=== PATIENT | male | born 1975 | race Caucasian/White ===

== ENCOUNTER 2018-02-12 20:26 | Inpatient (IN) | payer OTHER, SELFPAY ==
[2018-02-12 20:28] VITALS: BP 124/68; PULSE 96; RESP 16; TEMP 37.9; O2SAT 98; BMI 24.4
[2018-02-12 22:02] VITALS: BP 97/62; PULSE 93; RESP 18; O2SAT 94
[2018-02-12 22:06] LABS: Absolute Neutrophil Count 6.6 X10^3/uL (2.0-7.7); Basophil# 0.02 X10^3/uL; Basophil% 0.2 % (0-1); Eosinophil# 0.05 X10^3/uL; Eosinophils% 0.5 % (0-5); Hematocrit 40.5 % (40-54); Hemoglobin 14.3 g/dl (13.0-16.5); Lymphocyte % 16.3 % (19-41); Mean Corp Hgb Conc 35.3 g/gl (32-36); Mean Corpuscular Volume 85.1 fL (80-94); Mean Platelet Vol. 8.6 fl (6.2-12.0); Monocyte# 1.06 X10^3/uL; Monocyte% 11.5 % (0-10); Neutrophil # 6.57 X10^3/uL (2.7-7.7); Neutrophil % 71.5 % (47-70); Platelet Count 187 K/mm3 (150-450); RBC Distribution Width CV 11.9 % (11.6-14.6); RBC Distribution Width SD 36.9 fl (35.1-43.9); Red Blood Count 4.76 M/mm3 (4.6-6.2); White Blood Count 9.2 K/mm3 (4.4-11.0)
[2018-02-12 22:11] LABS: POSITIVE COUNT NO; POSITIVE DIFFERENTIAL NO; POSITIVE MORPHOLOGY NO
[2018-02-12] MEDS: Acetaminophen 500 MG Tablet 1000 MG PO (22:11)
[2018-02-12 22:12] VITALS: TEMP 37.4
[2018-02-12] MEDS: 0.9% Normal Saline 1,000 ML 999 ML IV ×2 (22:12→22:13)
[2018-02-12 22:17] LABS: Erythrocyte Sedimentation Rate 46 mm/hr (0-15)
[2018-02-12 22:19] LABS: International Normalized Ratio 1.1; Prothrombin Time (Protime)PT. 13.9 SECONDS (11.7-14.9)
[2018-02-12 22:20] LABS: Partial Thromboplast Time 34.2 Seconds (24.1-36.2)
[2018-02-12 22:25] LABS: ALB/GLOB Ratio 0.8 RATIO (0.9-2.4); AST(SGOT) 12 U/L (15-37); Alanine Aminotransfer ALT/SGPT 21 U/L (16-61); Albumin, Serum 3.5 g/dL (3.2-5.0); Alkaline Phosphatase 117 U/L (45-117); Anion Gap 7 (5-15); BUN 10 mg/dL (7-18); BUN/Creat Ratio 12.5 RATIO (10-20); CPK Total, Creatine Kinase 104 U/L (39-308); Calcium,Total 8.7 mg/dL (8.5-10.1); Chloride 103 mmol/L (98-107); EST Glomerular Filtration Rate 112 mL/min (>60); Est Glom Filt Rate - Afr Amer 136 mL/min (>60); Estimated Creatinine Clearance 121.52 ml/min; Globulin 4.3 g/dL (2.2-4.2); Glucose 106 mg/dL (74-106); Potassium 3.8 mmol/L (3.5-5.1); Protein, Total 7.8 g/dL (6.4-8.2); Sodium Level 137 mmol/L (136-145)
[2018-02-12 22:28] LABS: Lactic Acid 0.8 mmol/L (0.4-2.0)
[2018-02-12 22:59] LABS: Bacteria 0 SEEN /hpf (None Seen); Mucous, Urine 0 SEEN /hpf (<or=2+); Squamous Epithelial Cells - UA 0 SEEN /hpf (0-5)
[2018-02-12 23:00] VITALS: BP 111/74; PULSE 88; RESP 15; O2SAT 98
[2018-02-12 23:01] LABS: Color, Urine Yellow (Yellow); Glucose, Dipstick Normal (Normal); Ketone-Dipstick Negative (Negative); Leukocyte Esterase-Dipstick Negative /ul (Negative); Nitrite-Dipstick Negative (Negative); Occult Blood-Urine Negative /ul (Negative); Protein-Dipstick 30 mg/dl (Negative); Urine Bilirubin Dipstick Negative (Negative); Urine Clarity Clear (Clear); Urine Urobilinogen 1 mg/dl (Normal)
[2018-02-12 23:13] LABS: Hyaline Cast 0-5 SEEN /lpf (0-5); Red Blood Cells-Urine 0-5 SEEN /hpf (0-5); White Blood Cells 0-5 SEEN /hpf (0-5)
--- NOTE | 2018-02-12 23:36 | ED.VISSUMM ---
- ER Visit Summary Date of Service: 02/12/18 Chief Complaint: Leg weakness and fever History of Present Illness: The patient is a 42 M presenting for evaluation secondary to leg weakness and fever. Patient reports that over the course last 3 days he has had progressively worsening weakness. Patient reports that it started with a pain under the soles of his feet bilaterally. He reports that the pain seemed to ascend through the lateral portion of his calves, and then went up into the lateral and medial portions of his thighs into his lower back. Patient reports that he has weakness of his legs bilaterally and feels as if he is having some trouble ambulating. Patient reports that he has developed some low-grade fevers associated with this, most recently 101. He also states that he now is having some weakness in his hands and some difficulty with turning door handles. Patient states that about 5 or 6 weeks ago he had a flulike illness the completely resolved. He has not had any symptoms since then. Patient has a distant prior history of a cervical spine surgery, but no recent injections surgeries or history of IV drug use. Patient was seen in urgent care and was thought to potentially have [place]? so he was sent to the emergency department. Physical Examination: Vital signs notable blood pressure 97/62 temperature 99.3. Well-nourished male no acute distress. Head normal cephalic atraumatic, neck nontender full range of motion. Heart regular rate and rhythm no murmurs lungs sounds clear to auscultation bilaterally. Abdomen soft nontender nondistended. Back was nontender. Extremities were nontender to palpation, no evidence of peripheral edema with normal peripheral pulses. Skin was normal color with no rash. Neurologic exam of the patient to nd shows 5 out of 5 strength at the shoulder elbow wrist and hand with 1+ brachioradialis biceps and triceps reflexes bilaterally. Lower extremity neuro exam shows 4 out of 5 strength hip flexion on the right with 5 out of 5 strength throughout the rest of the lower extremities. There are 3+ bilateral patellar reflexes with 2+ Achilles downgoing Babinski's and negative clonus. Test Results: CBC shows a neutrophilic predominance of 71.5. Chemistries negative. Liver panel shows elevated total bilirubin at 2.1. Urinalysis is negative, CPK is normal at 108, CRP elevated at 63 ESR mildly elevated at 40. Emergency Department Course and Treatment: Patient presented for evaluation secondary to weakness and fever. Patient's description of his ascending weakness is concerning for the possibility of the operated but his physical exam is clearly not consistent with this given the fact that he is hyperreflexic rather than hyporeflexic. She had lab work that was essentially unremarkable. He was given 2 L normal saline had improvement of his blood pressure. I discussed this case with neurology, who does not feel that a emergent lumbar puncture is necessary. Given the patient's fever and ascending weakness I did start patient on broad-spectrum antibiotics. Patient will be admitted under the hospitalist for further workup. Disposition: Admission Impression: 1. Bilateral lower extremity weakness 2. Fever This note was generated with [employer] dictation software. It may contain incorrect words, spelling, and punctuation that were not noted in review of the chart prior to signing ED Disposition - Plan for ED Patient: Chief Complaint: Lower Extremity Injury Referrals: Leonidas Mabry DO [Primary Care Provider] -
[2018-02-12 23:39] VITALS: BP 113/68; PULSE 82; RESP 24; TEMP 37.4; O2SAT 94
[2018-02-12] MEDS: Piperacil/Tazobactam 3.375 GM/50 ML ML IV (23:45)
[2018-02-13] VITALS (11 sets, daily range): BP systolic 104–136; BP diastolic 62–72; PULSE 64–92; RESP 12–21; TEMP 36.9–37.2; O2SAT 94–99; BMI 24.2; BMI 24.3
--- NOTE | 2018-02-13 00:14 | HP.PCM_ITS ---
History of Present Illness Date of Admission: 02/13/18 Chief Complaint: Bilateral leg pain/weakness, subjective fever. The patient is a 42 year old M with no significant past medical history presented to the emergency room because of bilateral leg pain and weakness. His symptoms started 5 days ago with bilateral lower extremity pain, started on both feet, start to go up to his legs and thighs up to his hips, dull aching constant pain, 7 out of 10 in severity, associated with difficulty ambulating and weakness and without aggravating or relieving factors. He mentioned that the pain in the weakness is slightly more on the right lower extremity. He reports subjective fever at home today. Her symptom has been progressive and since yesterday, he has been having difficulties ambulating and he decided to go to urgent care who sent him to ER for evaluation. He described some different feeling and sensation on both legs and looked like his legs are very heavy and tingly. He denied fall on mechanical trauma. He complains of headache and when he bends his neck forward, some kind of mild pain goes along his back down to his anal cleft. He history of bad influenza around 5 weeks ago. He denied chest pain or shortness of breath. Denied cough or sputum production. His mentioned that his brother had a serious illness few months ago and he had spinal tap when he was in the hospital. She does not have any more significant details about this story. In the emergency department , he had low-grade fever, other vital signs were stable. His routine blood work was unremarkable. His LFT revealed bilirubin of 2.1, normal liver transaminases and alkaline phosphatase. His lactic acid was normal. ESR and C- reactive protein was elevated. Urine analysis showed no evidence of acute cystitis. He is being admitted for bilateral leg weakness/pain and acute febrile illness without evidence of infection for evaluation. Past Medical History Allergies No Known Allergies Allergy (Verified 02/12/18 20:28) Home Medications: Ambulatory Orders Medication Instructions Recorded NK [NK] 02/12/18 Surgical History: - - Neck surgery. Psychiatric History: No pertinent psych hx Lives: Spouse/ Significant Other Smoking Status: Never smoker Alcohol: None Drugs: None - *Family History Maternal History Items: No pertinent history Paternal History Items: No pertinent history Review of Systems Constitutional: Reports: Anorexia, Fever, Weakness. Denies: Chills Eyes: Denies: Blurred vision, Double vision, Drainage, Redness HEENT: Denies: Difficulty Hearing, Ear Pain, Eye Pain, Nasal Congestion, Sore Throat Cardiovascular: Denies: Chest Pain, Chest Pressure, Chest Tightness, Heaviness, Palpitations, Syncope Respiratory: Denies: Cough, Pleuritic Pain, Shortness of Breath, Sputum production, Wheezing Gastrointestinal: Denies: Abdominal Pain, Constipation, Diarrhea, Nausea, Vomiting Genitourinary: Denies: Dysuria, Frequency, Hematuria Musculoskeletal: Reports: Leg Pain, Muscle pain. Denies: Arm Pain, Joint Pain Skin: Denies: Dryness, Rash Neurological: Reports: Headaches, Tingling. Denies: Balance problems, Double vision, Change in Speech, Slurred speech, Confusion, Incoordination Psychiatric: Denies: Anxiety, Depression Endocrine: Denies: Change in Body Habitus, Polydipsia VTE Information - Inpt Only VTE Present on Admission: No VTE Mechan Device Prophylaxis: None VTE Pharm Prophylaxis ordered?: Yes - Physical Exam General: Alert, Oriented x3, Cooperative HEENT: Atraumatic, PERRLA, EOMI, Normocephalic, - - No neck stiffness. Oral: Moist Mucosa, No Gingival or Mucosal Lesions/ Ulcerations Neck: Supple, No JVD, Negative Carotid Bruits, Trachea Midline, Thyroid Normal Size and Texture Lungs: Clear to auscultation, No rhonchi, No wheeze, No rales, Diminished Cardiovascular: Regular rate, Regular Rhythm, Normal S1, Normal S2, PMI Normal Abdomen: Bowel Sounds Present, Soft, Non Tender, Non-Distended, No Hepato- splenomegaly Extremities: No clubbing, No cyanosis, No edema Skin: No rashes, No breakdown Lymphatic: No Cervical, Supraclavicular, or Inguinal Adenopathy Neurological: Cranial nerves II-XII grossly intact, Motor Exam 5/5 strength throughout Psych/Mental Status: Normal Affect, Appropriate, Alert and oriented to time, place, person, mood and affect Vital Signs Temp Pulse Resp BP Pulse Ox 99.4 F H 74 18 114/69 94 02/12/18 23:39 02/13/18 00:07 02/13/18 00:07 02/13/18 00:07 02/13/18 00:07 Oxygen Delivery Method Room Air Weight: 165 lb 9.074 oz Body Mass Index (BMI) 24.4 Laboratory Tests Past 24 Hrs 02/12/18 02/12/18 02/12/18 21:45 21:45 21:45 WBC 9.2 RBC 4.76 Hgb 14.3 Hct 40.5 MCV 85.1 MCH 30.0 MCHC 35.3 RDW 11.9 RDW Differential 36.9 Plt Count 187 MPV 8.6 Immature Gran % (Auto) 0.000 Neut % (Auto) 71.5 H Lymph % (Auto) 16.3 L [place] % (Auto) 11.5 H Eos % (Auto) 0.5 Baso % (Auto) 0.2 Absolute Neuts (auto) 6.6 Absolute Lymphs (auto) 1.50 Total Counted Not Reportable ESR 46 H PT 13.9 INR 1.1 APTT 34.2 Sodium 137 Potassium 3.8 Chloride 103 Carbon Dioxide 27.0 Anion Gap 7 BUN 10 Creatinine 0.80 Estim Creat Clear Calc 121.52 Est GFR (MDRD) Af Amer 136 Est GFR (MDRD) Non-Af 112 BUN/Creatinine Ratio 12.5 Glucose 106 Lactic Acid Calcium 8.7 Total Bilirubin 2.10 H AST 12 L ALT 21 Alkaline Phosphatase 117 Total Creatine Kinase 104 C-React Prot Ext Range 63.50 H Total Protein 7.8 Albumin 3.5 Globulin 4.3 H Albumin/Globulin Ratio 0.8 L Urine Color Urine Clarity Urine pH Ur Specific [place] Urine Protein Urine Glucose (UA) Urine Ketones Urine Occult Blood Urine Nitrite Urine Bilirubin Urine Urobilinogen Ur Leukocyte Esterase Urine RBC Urine WBC Ur Squamous Epith Cells Urine Bacteria Hyaline Casts Urine Mucus 02/12/18 02/12/18 21:45 22:55 WBC RBC Hgb Hct MCV MCH MCHC RDW RDW Differential Plt Count MPV Immature Gran % (Auto) Neut % (Auto) Lymph % (Auto) [place] % (Auto) Eos % (Auto) Baso % (Auto) Absolute Neuts (auto) Absolute Lymphs (auto) Total Counted ESR PT INR APTT Sodium Potassium Chloride Carbon Dioxide Anion Gap BUN Creatinine Estim Creat Clear Calc Est GFR (MDRD) Af Amer Est GFR (MDRD) Non-Af BUN/Creatinine Ratio Glucose Lactic Acid 0.8 Calcium Total Bilirubin AST ALT Alkaline Phosphatase Total Creatine Kinase C-React Prot Ext Range Total Protein Albumin Globulin Albumin/Globulin Ratio Urine Color Yellow Urine Clarity Clear Urine pH 7.0 Ur Specific [place] 1.010 Urine Protein 30 H Urine Glucose (UA) Normal Urine Ketones Negative Urine Occult Blood Negative Urine Nitrite Negative Urine Bilirubin Negative Urine Urobilinogen 1 H Ur Leukocyte Esterase Negative Urine RBC 0-5 SEEN Urine WBC 0-5 SEEN Ur Squamous Epith Cells 0 SEEN Urine Bacteria 0 SEEN Hyaline Casts 0-5 SEEN Urine Mucus 0 SEEN Assessment/Plan This is a 42 years old male patient presented to the emergency room because of 5 days history of bilateral leg pain and weakness as well as subjective fever and he is being admitted for evaluation. #1 bilateral leg pain/weakness/fever: In context of history of influenza 5 weeks ago. Differential diagnoses include [place]? syndrome and transverse myelitis. At this time, his vital signs are stable, respiratory status is stable. Routine blood work is unremarkable. CRP and ESR was elevated. Urinalysis is unremarkable. Plan: Admit to PCU, cardiac monitoring, neurologic assessment every 8 hours ?3, IV fluids, empiric IV antibiotics, lumbar puncture, Tylenol as needed, IV morphine as needed for pain, IV antiemetics, neurology consult, repeat CBC and CMP tomorrow morning, PT OT evaluation and treatment. #2 DVT prophylaxis: Subcu Lovenox. This note was generated with [employer] dictation software. It may contain incorrect words, spelling, and punctuation that were not noted in checking the note before signing. Code Visit Inpatient E&M: 86506 Init Hosp L3
--- NOTE | 2018-02-13 00:34 | NURSING ---
Called ED charge nurse eugenia Desai to send patient to the floor.
--- NOTE | 2018-02-13 01:05 | RAD_ITS ---
STUDY: X-RAY CHEST REASON FOR EXAM: Male, 42 years old. Fever TECHNIQUE: Single AP portable view of the chest. COMPARISON: None. FINDINGS: The lungs are clear and expanded. There is no demonstrated pleural abnormality. Normal size heart. Normal mediastinum and hao. Normal visualized pulmonary arteries. Normal visualized aortic arch and descending thoracic aorta. Normal visualized thoracic spine. Normal visualized ribs, clavicles, and shoulders. There is no demonstrated abnormality of the visualized soft tissue structures of the upper abdomen. RAD/Chest 1 View (Portable) IMPRESSION: Normal x-ray examination of the chest. Electronically Signed: Mel Pulido MD at 4:55 EDT Tel , Service support ,
--- NOTE | 2018-02-13 02:07 | PCM.RX.CS ---
Consult Pharmacy has been consulted to manage selected antiobiotic: Vancomycin Type of Consult: New start Suspected Infection: Other Prior Doses of Antibiotics Received/Current Regimen: Medications Vancomycin HCl 1,250 mg/ (Sodium Chloride) 275 mls @ 183.333 mls/hr IV Q12H JIE Vancomycin HCl 1,250 mg/ (Sodium Chloride) 275 mls @ 183.333 mls/hr IV X1 ONE Stop: 02/13/18 03:29 Last Admin: 02/13/18 01:58 Dose: 183.333 mls/hr Labs: Sodium 137 mmol/L (136-145) 02/12/18 21:45 Potassium 3.8 mmol/L (3.5-5.1) 02/12/18 21:45 Chloride 103 mmol/L (98-107) 02/12/18 21:45 Carbon Dioxide 27.0 mmol/L (21.0-32.0) 02/12/18 21:45 Anion Gap 7 (5-15) 02/12/18 21:45 BUN 10 mg/dL (7-18) 02/12/18 21:45 Creatinine 0.80 mg/dL (0.70-1.30) 02/12/18 21:45 Est GFR (MDRD) Af Amer 136 mL/min (>60) 02/12/18 21:45 Est GFR (MDRD) Non-Af 112 mL/min (>60) 02/12/18 21:45 BUN/Creatinine Ratio 12.5 RATIO (10-20) 02/12/18 21:45 Glucose 106 mg/dL (74-106) 02/12/18 21:45 Weight used for dosin.1 kg Estimated Creatinine Clearance: 121 Goal Trough: 10-15 mcg/mL Pharmacy Plan for Drug Dosing: Pharmacy Service will continue to monitor and adjust dosing as required. Follow-Up Labs: Trough Vancomycin Labs to be done on [date and time ordered]: 02/14/18 @1330 (before 4th dose)
[2018-02-13] MEDS: Piperacil/Tazobactam 3.375 GM/50 ML ML IV (05:30)
[2018-02-13] MEDS: Enoxaparin 40 MG/0.4 ML Syringe SC (05:34)
[2018-02-13 06:06] LABS: Absolute Lymphocyte Count 1.24 X10^3/ul (0.83-4.51); Absolute Neutrophil Count 3.9 X10^3/uL (2.0-7.7); Basophil# 0.01 X10^3/uL; Basophil% 0.2 % (0-1); Eosinophil# 0.05 X10^3/uL; Eosinophils% 0.8 % (0-5); Hemoglobin 12.4 g/dl (13.0-16.5); Lymphocyte # 1.24 X10^3/ul (4.0); Lymphocyte % 20.7 % (19-41); Mean Corp Hgb Conc 33.5 g/gl (32-36); Mean Corpuscular Hgb 29.1 pg (27.0-32.0); Mean Corpuscular Volume 86.9 fL (80-94); Mean Platelet Vol. 8.9 fl (6.2-12.0); Monocyte# 0.77 X10^3/uL; Monocyte% 12.8 % (0-10); Neutrophil # 3.92 X10^3/uL (2.7-7.7); Neutrophil % 65.3 % (47-70); Platelet Count 157 K/mm3 (150-450); RBC Distribution Width SD 38.2 fl (35.1-43.9); Red Blood Count 4.26 M/mm3 (4.6-6.2)
[2018-02-13 06:12] LABS: POSITIVE COUNT NO; POSITIVE DIFFERENTIAL NO; POSITIVE MORPHOLOGY NO
[2018-02-13 06:26] LABS: ALB/GLOB Ratio 0.8 RATIO (0.9-2.4); AST(SGOT) 9 U/L (15-37); Alanine Aminotransfer ALT/SGPT 16 U/L (16-61); Albumin, Serum 2.8 g/dL (3.2-5.0); Alkaline Phosphatase 94 U/L (45-117); Anion Gap 5 (5-15); BUN 8 mg/dL (7-18); BUN/Creat Ratio 10.6 RATIO (10-20); Calcium,Total 7.9 mg/dL (8.5-10.1); Chloride 109 mmol/L (98-107); Creatinine, Serum 0.76 mg/dL (0.70-1.30); EST Glomerular Filtration Rate 121 mL/min (>60); Est Glom Filt Rate - Afr Amer 146 mL/min (>60); Estimated Creatinine Clearance 127.91 ml/min; Globulin 3.5 g/dL (2.2-4.2); Glucose 117 mg/dL (74-106); Potassium 3.9 mmol/L (3.5-5.1); Protein, Total 6.3 g/dL (6.4-8.2); Sodium Level 143 mmol/L (136-145)
--- NOTE | 2018-02-13 11:20 | CON.PCM_ITS ---
Reason for Consult Date of Consultation: 02/13/18 Reason for Consultation: leg weakness and pain History of Present Illness: The patient is a 42 year old right handed male, healthy otherwise, 6 days ago noted onset of lower extremity weakness and pain, reports improved today. history of cervical disc, but no new neck or back pain.admitted last night, low grade fevers noted, normal cpk, elevated crp and esr. notes tick bites in the past but none this year. per admit h and p:The patient is a 42 year old M with no significant past medical history presented to the emergency room because of bilateral leg pain and weakness. His symptoms started 5 days ago with bilateral lower extremity pain, started on both feet, start to go up to his legs and thighs up to his hips , dull aching constant pain, 7 out of 10 in severity, associated with difficulty ambulating and weakness and without aggravating or relieving factors. He mentioned that the pain in the weakness is slightly more on the right lower extremity. He reports subjective fever at home today. Her symptom has been progressive and since yesterday, he has been having difficulties ambulating and he decided to go to urgent care who sent him to ER for evaluation. He described some different feeling and sensation on both legs and looked like his legs are very heavy and tingly. He denied fall on mechanical trauma. He complains of headache and when he bends his neck forward, some kind of mild pain goes along his back down to his anal cleft. He history of bad influenza around 5 weeks ago. He denied chest pain or shortness of breath. Denied cough or sputum production. His mentioned that his brother had a serious illness few months ago and he had spinal tap when he was in the hospital. She does not have any more significant details about this story. In the emergency department, he had low-grade fever, other vital signs were stable. His routine blood work was unremarkable. His LFT revealed bilirubin of 2.1, normal liver transaminases and alkaline phosphatase. His lactic acid was normal. ESR and C-reactive protein was elevated. Urine analysis showed no evidence of acute cystitis. He is being admitted for bilateral leg weakness/ pain and acute febrile illness without evidence of infection for evaluation. Past Medical History Allergies No Known Allergies Allergy (Verified 02/12/18 20:28) Home Medications: Ambulatory Orders Medication Instructions Recorded NK [NK] 02/12/18 Surgical History: - - Neck surgery. Psychiatric History: No pertinent psych hx Lives: Spouse/ Significant Other Smoking Status: Former smoker Tobacco Use: Cigarettes Alcohol: None Drugs: None - *Family History Maternal History Items: No pertinent history Paternal History Items: No pertinent history Review of Systems Constitutional: Denies: Chills, Fever, Weight Change HEENT: Denies: Head Aches, Sinus Congestion, Sinus Drainage Cardiovascular: Denies: Chest Pain, Palpitations Respiratory: Denies: Cough, Shortness of breath at rest, Sputum production Gastrointestinal: Denies: Abdominal Pain, Nausea, Vomiting Genitourinary: Denies: Dysuria Musculoskeletal: Denies: Joint Pain, Joint Tenderness Skin: Denies: Rash, Wounds Neurological: Denies: Numbness, Tingling, Focal weakness Psychiatric: Denies: Anxiety, Depression, Homicidal Ideations, Suicidal Ideations Hematologic/ Lymphatic: Denies: Easy Bruising, Easy Bleeding - Physical Exam General: Alert, Oriented x3, Cooperative, No apparent distress HEENT: PERRLA, EOMI Musculoskeletal: - - right knee pain on palpation, no swelling or warmth or redness Neurological: Cranial nerves II-XII grossly intact, Deep Tendon Reflexes 2+/4 and Symmetrical, Neuro grossly intact, Motor Exam 5/5 strength throughout Psych/Mental Status: Normal Affect Vital Signs Temp Pulse Resp BP Pulse Ox 37.2 C 88 12 120/64 96 02/13/18 10:00 02/13/18 10:00 02/13/18 10:00 02/13/18 10:00 02/13/18 10:00 Oxygen Delivery Method Room Air Weight: 74.5 kg Body Mass Index (BMI) 24.2 Intake and Output for Last 24 Hours 02/11/18 02/12/18 02/13/18 23:59 23:59 23:59 Intake Total 938 / 938 Output Total 325 / 325 Balance 613 / 613 Laboratory Tests Past 24 Hrs 02/13/18 02/13/18 05:35 05:35 WBC 6.0 RBC 4.26 L Hgb 12.4 L Hct 37.0 L MCV 86.9 MCH 29.1 MCHC 33.5 RDW 12.0 RDW Differential 38.2 Plt Count 157 MPV 8.9 Immature Gran % (Auto) 0.200 Neut % (Auto) 65.3 Lymph % (Auto) 20.7 [place] % (Auto) 12.8 H Eos % (Auto) 0.8 Baso % (Auto) 0.2 Absolute Neuts (auto) 3.9 Absolute Lymphs (auto) 1.24 Total Counted Not Reportable Sodium 143 Potassium 3.9 Chloride 109 H Carbon Dioxide 29.0 Anion Gap 5 BUN 8 Creatinine 0.76 Estim Creat Clear Calc 127.91 Est GFR (MDRD) Af Amer 146 Est GFR (MDRD) Non-Af 121 BUN/Creatinine Ratio 10.6 Glucose 117 H Calcium 7.9 L Total Bilirubin 2.30 H AST 9 L ALT 16 Alkaline Phosphatase 94 Total Protein 6.3 L Albumin 2.8 L Globulin 3.5 Albumin/Globulin Ratio 0.8 L Current Home Med List Medication Instructions Recorded Confirmed Type NK [NK] 02/12/18 02/12/18 History Current Medications Generic Name Dose Route Start Last Admin Trade Name Freq PRN Reason Stop Dose Admin Acetaminophen 650 mg 02/13/18 01:05 Tylenol PO Q6H PRN PRN Fever, headache, pain Enoxaparin Sodium 40 mg 02/13/18 06:00 02/13/18 05:34 Lovenox SC 40 mg DAILY@0600 [facility] Administration Magnesium Hydroxide 30 ml 02/13/18 01:05 Milk Of Magnesia PO DAILY PRN PRN Constipation Morphine Sulfate 1 mg 02/13/18 01:05 IV Q4H PRN PRN SEVERE PAIN (6-10/10) Nutritional Formula (Lactose Free) 120 ml 02/13/18 10:00 02/13/18 08:30 Ensure Enlive PO Not Given 4X/DAY [facility] Ondansetron HCl 4 mg 02/13/18 01:05 Zofran IV Q6H PRN PRN NAUSEA/VOMITING Sodium Chloride 5 - 30 ml 02/13/18 01:28 IV UD PRN SALINE FLUSH Laboratory Results - last 24 hr 02/12/18 02/12/18 02/12/18 21:45 21:45 21:45 WBC 9.2 RBC 4.76 Hgb 14.3 Hct 40.5 MCV 85.1 MCH 30.0 MCHC 35.3 RDW 11.9 RDW Differential 36.9 Plt Count 187 MPV 8.6 Immature Gran % (Auto) 0.000 Neut % (Auto) 71.5 H Lymph % (Auto) 16.3 L [place] % (Auto) 11.5 H Eos % (Auto) 0.5 Baso % (Auto) 0.2 Absolute Neuts (auto) 6.6 Absolute Lymphs (auto) 1.50 Total Counted Not Reportable ESR 46 H PT 13.9 INR 1.1 APTT 34.2 Sodium 137 Potassium 3.8 Chloride 103 Carbon Dioxide 27.0 Anion Gap 7 BUN 10 Creatinine 0.80 Estim Creat Clear Calc 121.52 Est GFR (MDRD) Af Amer 136 Est GFR (MDRD) Non-Af 112 BUN/Creatinine Ratio 12.5 Glucose 106 Lactic Acid Calcium 8.7 Total Bilirubin 2.10 H AST 12 L ALT 21 Alkaline Phosphatase 117 Total Creatine Kinase 104 C-React Prot Ext Range 63.50 H Total Protein 7.8 Albumin 3.5 Globulin 4.3 H Albumin/Globulin Ratio 0.8 L Urine Color Urine Clarity Urine pH Ur Specific [place] Urine Protein Urine Glucose (UA) Urine Ketones Urine Occult Blood Urine Nitrite Urine Bilirubin Urine Urobilinogen Ur Leukocyte Esterase Urine RBC Urine WBC Ur Squamous Epith Cells Urine Bacteria Hyaline Casts Urine Mucus 02/12/18 02/12/18 02/13/18 21:45 22:55 05:35 WBC 6.0 RBC 4.26 L Hgb 12.4 L Hct 37.0 L MCV 86.9 MCH 29.1 MCHC 33.5 RDW 12.0 RDW Differential 38.2 Plt Count 157 MPV 8.9 Immature Gran % (Auto) 0.200 Neut % (Auto) 65.3 Lymph % (Auto) 20.7 [place] % (Auto) 12.8 H Eos % (Auto) 0.8 Baso % (Auto) 0.2 Absolute Neuts (auto) 3.9 Absolute Lymphs (auto) 1.24 Total Counted Not Reportable ESR PT INR APTT Sodium Potassium Chloride Carbon Dioxide Anion Gap BUN Creatinine Estim Creat Clear Calc Est GFR (MDRD) Af Amer Est GFR (MDRD) Non-Af BUN/Creatinine Ratio Glucose Lactic Acid 0.8 Calcium Total Bilirubin AST ALT Alkaline Phosphatase Total Creatine Kinase C-React Prot Ext Range Total Protein Albumin Globulin Albumin/Globulin Ratio Urine Color Yellow Urine Clarity Clear Urine pH 7.0 Ur Specific [place] 1.010 Urine Protein 30 H Urine Glucose (UA) Normal Urine Ketones Negative Urine Occult Blood Negative Urine Nitrite Negative Urine Bilirubin Negative Urine Urobilinogen 1 H Ur Leukocyte Esterase Negative Urine RBC 0-5 SEEN Urine WBC 0-5 SEEN Ur Squamous Epith Cells 0 SEEN Urine Bacteria 0 SEEN Hyaline Casts 0-5 SEEN Urine Mucus 0 SEEN 02/13/18 05:35 WBC RBC Hgb Hct MCV MCH MCHC RDW RDW Differential Plt Count MPV Immature Gran % (Auto) Neut % (Auto) Lymph % (Auto) [place] % (Auto) Eos % (Auto) Baso % (Auto) Absolute Neuts (auto) Absolute Lymphs (auto) Total Counted ESR PT INR APTT Sodium 143 Potassium 3.9 Chloride 109 H Carbon Dioxide 29.0 Anion Gap 5 BUN 8 Creatinine 0.76 Estim Creat Clear Calc 127.91 Est GFR (MDRD) Af Amer 146 Est GFR (MDRD) Non-Af 121 BUN/Creatinine Ratio 10.6 Glucose 117 H Lactic Acid Calcium 7.9 L Total Bilirubin 2.30 H AST 9 L ALT 16 Alkaline Phosphatase 94 Total Creatine Kinase C-React Prot Ext Range Total Protein 6.3 L Albumin 2.8 L Globulin 3.5 Albumin/Globulin Ratio 0.8 L Urine Color Urine Clarity Urine pH Ur Specific [place] Urine Protein Urine Glucose (UA) Urine Ketones Urine Occult Blood Urine Nitrite Urine Bilirubin Urine Urobilinogen Ur Leukocyte Esterase Urine RBC Urine WBC Ur Squamous Epith Cells Urine Bacteria Hyaline Casts Urine Mucus Assessment/Plan arthralgias, elevated esr and crp will order rhuematologic lab no indication for lp at this point sx significantly improved, consider dc with op rheum followup
[2018-02-13 14:02] LABS: Rheumatoid Factor < 10.0 IU/mL (<15)
--- NOTE | 2018-02-13 14:56 | CON.PCM_ITS ---
Problem List (1) Weakness Status: Acute Reason for Consult: weakness Consulted by: Dr. Whelan History of Present Illness: The patient is a 42 year old M with minimal PMH presented with 5 days of BLE weakness. Had flu-like illness about 5 weeks ago. No other recent illness. Started with leg weakness, started to include hands. Some fever mild at home, some nausea. Came to urgent care, sent to ED. Now feeling much better, only minimal weakness in RLE still at this point. Full ROS performed and neg except as noted above. - Medical History Allergies/Adverse Reactions: Allergies No Known Allergies Allergy (Verified 02/12/18 20:28) Home Medications: Ambulatory Orders Medication Instructions Recorded NK [NK] 02/12/18 - Social History Tobacco Use: non-smoker Vital Signs Temp Pulse Resp BP Pulse Ox 98.9 F 81 12 120/64 96 02/13/18 10:00 02/13/18 11:00 02/13/18 10:00 02/13/18 10:00 02/13/18 10:00 Oxygen Delivery Method Room Air Weight: 74.5 kg Body Mass Index (BMI) 24.2 Laboratory Tests Past 24 Hrs 02/13/18 02/13/18 02/13/18 05:35 05:35 11:30 WBC 6.0 RBC 4.26 L Hgb 12.4 L Hct 37.0 L MCV 86.9 MCH 29.1 MCHC 33.5 RDW 12.0 RDW Differential 38.2 Plt Count 157 MPV 8.9 Immature Gran % (Auto) 0.200 Neut % (Auto) 65.3 Lymph % (Auto) 20.7 [place]ult[place] % (Auto) 12.8 H Eos % (Auto) 0.8 Baso % (Auto) 0.2 Absolute Neuts (auto) 3.9 Absolute Lymphs (auto) 1.24 Total Counted Not Reportable Sodium 143 Potassium 3.9 Chloride 109 H Carbon Dioxide 29.0 Anion Gap 5 BUN 8 Creatinine 0.76 Estim Creat Clear Calc 127.91 Est GFR (MDRD) Af Amer 146 Est GFR (MDRD) Non-Af 121 BUN/Creatinine Ratio 10.6 Glucose 117 H Calcium 7.9 L Total Bilirubin 2.30 H AST 9 L ALT 16 Alkaline Phosphatase 94 Total Protein 6.3 L Albumin 2.8 L Globulin 3.5 Albumin/Globulin Ratio 0.8 L Rheumatoid Factor NEETA Screen Pending ROEL-1 Antibody Pending SS-A/Ro IgG Antibody Pending SS-B/La IgG Antibody Pending Sm (March) Antibody Pending SOCIAL SCIENTIST Antibody Pending Scl-70 Scleroderma Ab Pending Double Strand DNA Ab Pending Centromere B Antibody Pending 02/13/18 12:58 WBC RBC Hgb Hct MCV MCH MCHC RDW RDW Differential Plt Count MPV Immature Gran % (Auto) Neut % (Auto) Lymph % (Auto) [place] % (Auto) Eos % (Auto) Baso % (Auto) Absolute Neuts (auto) Absolute Lymphs (auto) Total Counted Sodium Potassium Chloride Carbon Dioxide Anion Gap BUN Creatinine Estim Creat Clear Calc Est GFR (MDRD) Af Amer Est GFR (MDRD) Non-Af BUN/Creatinine Ratio Glucose Calcium Total Bilirubin AST ALT Alkaline Phosphatase Total Protein Albumin Globulin Albumin/Globulin Ratio Rheumatoid Factor < 10.0 NEETA Screen ROEL-1 Antibody SS-A/Ro IgG Antibody SS-B/La IgG Antibody Sm (March) Antibody SOCIAL SCIENTIST Antibody Scl-70 Scleroderma Ab Double Strand DNA Ab Centromere B Antibody - Other Studies Radiology: [] reviewed Other Studies: [] Route of nutrition/ use of supplements: [] Nutritional Intake: [] IV Site: [] Palomo Catheter: [] - Physical Exam General: Alert, Oriented x3, Cooperative, No apparent distress HEENT: Atraumatic, PERRLA, EOMI Neck: Supple, No Nodes Lungs: Clear to auscultation, Normal air movement Cardiovascular: Regular rate, Regular Rhythm Abdomen: Soft, Non Tender, Non-Distended Extremities: No edema Skin: No rashes IV Site: Peripheral, without redness Musculoskeletal: No Tenderness to Palpation of Joints or Extremities Neurological: Cranial nerves II-XII grossly intact - Assessment/Plan Antibiotics: [] Assessment/Plan: [] weakness - no clear sign of infection, ok for d/c home off of abx. Will follow, thank you, d/w Dr. Whelan
--- NOTE | 2018-02-13 15:45 | CASEMGMT ---
RN MANAS Face to Face with patient for initial transition planning/care coordination assessment. RN CM introduced self and role at [facility]. Patient sitting on edge of bed, alert and oriented, family at bedside. Patient willing to participate in assessment and is able to answer all questions appropriately. Care providers, pharmacy, and demographics verified. See link attached. Patient wishes to discharge home, denies need for home health at this time. Pt states he has no further needs or concerns at this time. CM to follow for discharge planning needs that may arise. Disposition Plan: Patient to discharge home with family support and follow-up plans in place.
--- NOTE | 2018-02-13 16:35 | DCINST_ITS ---
- Discharge Diagnoses Current Active Problems: Current Active and Chronic Problems Weakness (Acute) You will use the following diet at home:: No restrictions Your food should be the consistency of: Regular Your liquids should be the consistency of: Regular/Thin Discharge Activity: Return to Normal Activity Allergies/Adverse Reactions: Allergies No Known Allergies Allergy (Verified 02/12/18 20:28) Medications to take at Discharge NK [NK] 02/12/18 Primary Care Physician: Leonidas Mabry DO [Primary Care Provider] - Please follow up with your Primary Care Physician in: in 1 week Test Results: Test results from this visit will be discussed in further detail at your follow- up appointment, if applicable.
--- NOTE | 2018-02-13 17:23 | DS.PCM_ITS ---
Discharge Date and Diagnosis Date of Admission: 02/12/18 Date of Discharge: 02/13/18 - Primary Discharge Diagnosis #1 bilateral lower extremity weakness-etiology unknown #2 right knee arthralgia-etiology unknown Hospital Course and Treatment Operations: None Procedures: None Summary of Care Provided: The patient is a 42 year old M who was seen in the emergency room at [facility] with chief complaint of bilateral lower extremity weakness and fever, he was sent in from an urgent care facility after going there with symptoms of lower extremity weakness and feverishness, temperature at the urgent care center was 101. Patient related to a flulike illness approximately 6 weeks prior. Examination in the emergency room revealed a slight weakness and lower extremity strength on the right, patient's upper extremities did not show any evidence of weakness on exam, CBC showed a normal white blood cell count, BMP was unremarkable, total bilirubin was slightly elevated at 2.1, CPK was normal at 108, C-reactive protein was elevated at 63, and sed rate was mildly elevated at 40. Patient's temperature in the emergency room was 100.2, chest x-ray was unremarkable. Patient was admitted to PCU, initially IV antibiotics were administered, these were stopped by myself, neurology was consulted and infectious diseases was consulted, neurology recommended no further testing on the patient, infectious diseases did not feel the patient had an active infection. The etiology of the patient's lower extremity weakness was unknown, he had also complained of right knee discomfort although there was no evidence of any swelling in the right knee. On 02/13/18, patient was seen and examined felt to be in stable condition for discharge home Discharge Activity: Return to Normal Activity Home Medications: Medications to take at Discharge NK [NK] 02/12/18 Primary Care Physician: Leonidas Mabry DO [Primary Care Provider] - Please follow up with your Primary Care Physician in: in 1 week Disposition: Home Minutes spent on discharge:: 25 Patient Condition:: Stable Medical Necessity - Tobacco Use Smoking Status: Former smoker Tobacco Use: Cigarettes Meaningful Use Info Meaningful Use Diagnoses (Choose all that apply): None applicable Code Visit Inpatient E&M: 69633 Disch Hosp
[2018-02-16 14:51] LABS: SJOGREN'S Anti-SS-A test < 0.2 AI (0.0-0.9); SJOGREN'S Anti-SS-B test < 0.2 AI (0.0-0.9)
[2018-02-17 07:58] LABS: Anti-Scleroderma-70 AB <0.2 AI (0.0-0.9)
[2018-02-17 07:58] LABS: ANTINUCLEAR ANTIBODIES DIRECT Negative (Negative)
[2018-02-19 20:15] LABS: Cytoplasmic Ab (C-ANCA) <1:20 titer (Neg:<1:20); Lyme IgG P18 Ab Absent (.); Lyme IgG P23 Ab Absent (.); Lyme IgG P28 Ab Absent (.); Lyme IgG P30 Ab Absent (.); Lyme IgG P39 Ab Absent (.); Lyme IgG P41 Ab Absent (.); Lyme IgG P45 Ab Absent (.); Lyme IgG P58 Ab Absent (.); Lyme IgG P66 Ab Absent (.); Lyme IgG P93 Ab Absent (.); Lyme IgM P23 Ab Absent (.); Lyme IgM P39 Ab Absent (.); Lyme IgM P41 Ab Absent (.)
[2018-02-20 08:18] LABS: Lyme IgG WB Interpretation Negative (.); Lyme IgM WB Interpretation Negative (.); Perinuclear Ab (P-ANCA) <1:20 titer (Neg:<1:20)
== END 2018-02-13 16:57 | disposition home or self-care (01) | DRG 948 ==
LOC: ED 23:17 → PCU 02-13 00:32
PROVIDERS: Psychiatry & Neurology Neurology; Admitting Provider Hospitalist; Emergency Provider Emergency Medicine; Family Provider Family Medicine; PCP Family Medicine; Visit Provider Internal Medicine
DX: R53.1 Weakness (principal); M25.561 Pain in right knee
CPT/HCPCS: 36415; 71045; 80053; 81001; 82550; 83605; 85025; 85610; 85652; 85730; 86038; 86140; 86225; 86235; 86256; 86431; 86617; 87040; 87086; 97162; 97166; 97802; 99284; J7030; J7050; A4216